=== PATIENT | female | born 1950 | race Caucasian/White ===

== ENCOUNTER → 2016-11-20 | Outpatient (CLI) | payer MEDICARE, OTHER ==
--- NOTE | 2016-11-20 17:43 | Diagnostic Imaging Report ---
Bilateral screening mammogram 2D views with tomosynthesis. The current study was also evaluated with a Computer Aided Detection (CAD) system. INDICATION: Screening. No current complaints stated on the questionnaire. COMPARISON: 08/18/15. FINDINGS: The breasts are composed of heterogeneously dense parenchyma which may decrease mammographic sensitivity. Circumscribed 5 mm cyst or intramammary lymph node is unchanged from prior exams in the axillary tail of the left breast. Allowing for technique and positional differences, no suspicious change is seen. IMPRESSION: No significant change. ACR BI-RADS Category 2: Benign findings. Result letter will be mailed to the patient. Note: At least 10% of breast cancer is not imaged by mammography. Dictated by: Dictated on workstation # [id number]
== END ==
LOC: RAD 09:05
PROVIDERS: ATTEND Family Medicine
DX: Z12.31 Encounter for screening mammogram for malignant neoplasm of breast (principal)
CPT/HCPCS: 77067

== ENCOUNTER → 2017-09-12 | Outpatient (CLI) | payer MEDICARE, OTHER ==
--- NOTE | 2017-09-12 16:07 | Diagnostic Imaging Report ---
INDICATION: Screening for osteoporosis. EXAMINATION: DEXA scan. FINDINGS: This study was compared to the prior exam of 08/18/2015. The bone mineral density of the hips and spine was measured. The T-score for the spine is 0.2, on the prior exam the T-score was 0.7. The T-score for the left hip is -0.7 and for the right hip -0.8. On the prior exam the T-score for each hip was -1.0. IMPRESSION: There are mixed results. There has been a slight decrease in the bone mineral density of the spine but a slight increase in the bone mineral density of both hips. All of the T-score values fall within the range of normal. Dictated by: Dictated on workstation # [id number]
== END ==
LOC: RAD 07:51
PROVIDERS: ATTEND Family Medicine
DX: Z13.820 Encounter for screening for osteoporosis (principal)
CPT/HCPCS: 77080

== ENCOUNTER → 2017-11-28 | Outpatient (CLI) | payer MEDICARE, OTHER ==
--- NOTE | 2017-11-28 14:39 | Diagnostic Imaging Report ---
INDICATION: Digital mammogram bilateral screening with 3-D tomosynthesis. This study was compared to the prior exams of 11/20/16, 08/18/15 and 09/06/14. At this time, there are no current complaints. The current study was also evaluated with a Computer Aided Detection (CAD) system. FINDINGS: The fibroglandular tissue in both breasts is heterogeneously dense. This does limit the sensitivity of this exam. Overall, there does not appear to have been any significant change when compared to the prior study. No primary or secondary sign of malignancy is noted. 3D tomographic images fail to show any sign of malignancy. IMPRESSION: There is no radiographic evidence for malignancy. ACR BI-RADS Category 1: Negative. Result letter will be mailed to the patient. Note: At least 10% of breast cancer is not imaged by mammography. Dictated by: Dictated on workstation # [id number]
== END ==
LOC: RAD 09:44
PROVIDERS: ATTEND Family Medicine
DX: Z12.31 Encounter for screening mammogram for malignant neoplasm of breast (principal)
CPT/HCPCS: 77067

== ENCOUNTER → 2018-12-15 | Outpatient (CLI) | payer MEDICARE, OTHER ==
--- NOTE | 2018-12-15 10:24 | Diagnostic Imaging Report ---
INDICATION: Routine screening. COMPARISON: 11/28/2017 and 11/20/2016. TECHNIQUE: 2D and 3D bilateral screening mammography was performed with CAD. FINDINGS: Scattered fibroglandular densities are identified bilaterally. The parenchymal pattern is stable. No dominant mass or malignant appearing microcalcifications are seen. The axillae are unremarkable. IMPRESSION: No mammographic features suspicious for malignancy are identified. ACR BI-RADS Category 1: Negative. Result letter will be mailed to the patient. Note: At least 10% of breast cancer is not imaged by mammography. Dictated by: Dictated on workstation # [id number]
== END ==
LOC: RAD 07:37
PROVIDERS: ATTEND Family Medicine
DX: Z12.31 Encounter for screening mammogram for malignant neoplasm of breast (principal)
CPT/HCPCS: 77067

== ENCOUNTER → 2019-03-13 | Outpatient (CLI) | payer MEDICARE, OTHER | LOC: LAB 09:10 | PROVIDERS: ATTEND Family Medicine | DX: R07.9 Chest pain, unspecified (principal) | CPT/HCPCS: 36415; 84484 ==

== ENCOUNTER → 2019-04-14 | Outpatient (CLI) | payer MEDICARE, OTHER ==
--- NOTE | 2019-04-14 10:44 | Diagnostic Imaging Report ---
PROCEDURE: CT head without contrast. TECHNIQUE: Multiple contiguous axial images were obtained through the brain without the use of intravenous contrast. Auto Exposure Controls were utilized during the CT exam to meet ALARA standards for radiation dose reduction. INDICATION: Headache and ear pain. FINDINGS: There is prominence of the ventricles and sulci. There is no hydrocephalus or cerebral edema. There is no midline shift or mass-effect. There is no intracranial mass, hemorrhage, or extra-axial fluid collection. There is some diffuse decreased attenuation of the periventricular white matter which is nonspecific. There is a mucous retention cyst and/or polyp in the sphenoid sinus. The remaining sinuses and mastoid air cells are clear. There are no regional areas of decreased attenuation appreciated to suggest an acute CVA. IMPRESSION: 1. No acute intracranial process. 2. Age-appropriate atrophy. 3. Decreased attenuation of the periventricular white matter which is nonspecific, however, likely reflects senescent change and/or chronic small vessel ischemic disease. 4. Mucous retention cyst and/or polyp in the sphenoid sinus. Dictated by: Dictated on workstation # [id number]
== END ==
LOC: RAD 10:29
PROVIDERS: ATTEND Family Medicine
DX: G31.9 Degenerative disease of nervous system, unspecified (principal); N28.9 Disorder of kidney and ureter, unspecified; H92.01 Otalgia, right ear; R90.82 White matter disease, unspecified
CPT/HCPCS: 70450

== ENCOUNTER → 2019-04-16 | Outpatient (CLI) | payer MEDICARE, OTHER ==
[2019-04-16 09:51] LABS: BASOPHILS % (AUTO) 1 % (0-10); EOSINOPHILS # (AUTO) 0.1 10^3/uL (0.0-0.3); EOSINOPHILS % (AUTO) 2 % (0-10); HEMATOCRIT 39 % (35-52); HEMOGLOBIN 12.6 G/DL (11.5-16.0); LYMPHOCYTES # (AUTO) 1.1 X 10^3 (1.0-4.0); LYMPHOCYTES % (AUTO) 20 % (12-44); MEAN CORPUSCULAR HEMOGLOBIN 29 PG (25-34); MEAN CORPUSCULAR HGB CONC 33 G/DL (32-36); MEAN CORPUSCULAR VOLUME 90 FL (80-99); MEAN PLATELET VOLUME 9.2 FL (7.4-10.4); MONOCYTES # (AUTO) 0.6 X 10^3 (0.0-1.0); MONOCYTES % (AUTO) 11 % (0-12); NEUTROPHILS # (AUTO) 3.7 X 10^3 (1.8-7.8); NEUTROPHILS % (AUTO) 67 % (42-75); PLATELET COUNT 327 10^3/uL (130-400); RED CELL DISTRIBUTION WIDTH 13.8 % (10.0-14.5); WHITE BLOOD COUNT 5.5 10^3/uL (4.3-11.0)
[2019-04-16 10:10] LABS: CREATININE SERUM 1.07 MG/DL (0.60-1.30)
== END ==
LOC: LAB 09:33
PROVIDERS: ATTEND Family Medicine
DX: R51 Headache (principal)
CPT/HCPCS: 36415; 82565; 84520; 85025

== ENCOUNTER → 2019-04-17 | Outpatient (CLI) | payer MEDICARE, OTHER ==
[~2019-04-17] MED LIST: HOLD METFORMIN - RECEIVED CONTRAST 20 ML VIAL IV SCH; IOHEXOL 350 MG/ML 100 ML (OMNIPAQUE 350) VIAL IV ONE; NS 100 ML (IVPB) BAG IV ONE
--- NOTE | 2019-04-17 09:53 | Diagnostic Imaging Report ---
PROCEDURE: CT angiography of the head with and without contrast. TECHNIQUE: Noncontrast CT of the head was obtained. Subsequently, after intravenous administration of contrast, thin section axial CT angiography of the head was performed. Source data was reformatted into multiple MIP reformats. Delayed postcontrast acquisition of the head was also acquired. Auto Exposure Controls were utilized during the CT exam to meet ALARA standards for radiation dose reduction. INDICATION: Headache. Right ear pain. COMPARISON: CT head on 04/14/2019. FINDINGS: CTA brain: Both internal carotid arteries are normal in course and caliber. The internal carotid artery terminus is unremarkable bilaterally. There is normal opacification of both the anterior and middle cerebral arteries bilaterally. There is no evidence of significant stenosis or aneurysm. The MCA trifurcation and the distal branch vessels are unremarkable bilaterally. There is no evidence of significant stenosis or aneurysm. In the posterior circulation, both of the vertebral arteries demonstrate normal opacification. The vertebral arteries are codominant. Both the right and left PICA arteries are identified. The basilar artery is normal in course and caliber. The terminal branch vessels including the superior cerebellar arteries unremarkable. The bilateral posterior cerebral arteries are unremarkable CT brain: No large acute territorial ischemia, mass, or hemorrhage. Chronic microvascular disease is seen in the periventricular and subcortical white matter. The ventricles and cortical sulci are prominent, consistent with generalized volume loss. The basilar cisterns are patent and unremarkable. The calvarium is intact. The paranasal sinuses and mastoid air cells are clear. IMPRESSION: 1. No evidence of intracranial aneurysm or significant stenosis. 2. No hemorrhage, mass, or evidence of territorial ischemia. 3. Generalized parenchymal volume loss with scattered chronic microvascular disease. Dictated by: Dictated on workstation # [id number]
== END ==
LOC: RAD 08:32
PROVIDERS: ATTEND Family Medicine
DX: G93.89 Other specified disorders of brain (principal); H92.01 Otalgia, right ear; R51 Headache
CPT/HCPCS: 70496

== ENCOUNTER → 2019-11-04 | Outpatient (CLI) | payer MEDICARE, OTHER ==
[2019-11-04 10:27] LABS: HEMOGLOBIN 13.1 G/DL (11.5-16.0); WHITE BLOOD COUNT 5.8 10^3/uL (4.3-11.0)
[2019-11-04 10:47] LABS: ALBUMIN 4.3 GM/DL (3.2-4.5); POTASSIUM 4.5 MMOL/L (3.6-5.0)
[2019-11-04 10:48] LABS: CALCIUM 10.2 MG/DL (8.5-10.1)
[2019-11-04 10:49] LABS: TOTAL PROTEIN 7.9 GM/DL (6.4-8.2)
[2019-11-04 10:51] LABS: BILIRUBIN,TOTAL 0.5 MG/DL (0.1-1.0)
[2019-11-04 10:53] LABS: CREATININE SERUM 1.08 MG/DL (0.60-1.30)
== END ==
LOC: LAB 09:55
PROVIDERS: ATTEND Family Medicine
DX: E03.9 Hypothyroidism, unspecified (principal); I10 Essential (primary) hypertension
CPT/HCPCS: 36415; 80053; 80061; 84443; 85027

== ENCOUNTER → 2019-12-22 | Outpatient (CLI) | payer MEDICARE, OTHER ==
--- NOTE | 2019-12-22 09:21 | Diagnostic Imaging Report ---
INDICATION: Postmenopausal. COMPARISON: 09/12/2017 FINDINGS: The bone mineral density of hips and spine was measured. The study was compared to the prior exam of 09/12/2017. The T score for the spine is -0.8. On the prior exam the T score was -0.2. The total T score for the left hip is -0.8 and for the right hip -0.9. On the prior exam the respected scores were -0.7 and -0.8. The T score for the left femoral neck is -1.0 and for the right -1.2. On the prior exam, the T-scores were -0.8 and -1.0 respectively. AP Spine L1-L4: [BMD (g/cm2): 1.104] [T-Score: -0.8] [Z-Score: 0.7] [BMD Previous: 1.227] [BMD % Change: -10.0] LT Hip Neck: [BMD (g/cm2): 0.899] [T-Score: -1.0] [Z-Score: 0.6] LT Hip Total: [BMD (g/cm2):0.901] [T-Score:-0.8] [Z-Score: 0.5] [BMD Previous: 0.915] [BMD % Change: -1.5] RT Hip Neck: [BMD (g/cm2):0.866] [T-Score:-1.4] [Z-Score:0.3] RT Hip Total: [BMD (g/cm2):0.889] [T-score:-0.9] [Z-Score:0.4] [BMD Previous:0.905] [BMD % Change:-1.8] *Indicates significant change from prior examination based on 95% confidence level. World Health Organization criteria for BMD interpretation classify patients as Normal (T-score at or above -1.0), Osteopenic (T-score between -1.0 and -2.5) or Osteoporotic (T-score at or below -2.5). LIMITATIONS AND MODIFICATION: None. FRACTURE RISK (FRAX SCORE): The ten year probability of (%): Major Osteoporotic Fracture: [na] Hip Fracture: [na] IMPRESSION: 1. There has been slight decrease in the bone mineral density of the spine and hips. However, the T scores of spine and the total T score for the hips remain within normal limits. 2. The T scores for the femoral necks are also decreased. The T score for the left femoral neck is at the lowest end of normal and while the T score for the right femoral neck indicates mild osteopenia. 3. See below National Osteoporosis Foundation guidelines on when to potentially initiate pharmacologic therapy. Based on the National Osteoporosis Foundation Guidelines, pharmacologic treatment should be initiated in any of the following, unless clinical conditions suggest otherwise: * Any patient with prior fragility fracture of the hip or vertebrae. A spine fracture indicates 5X risk for subsequent spine fracture and 2X risk for subsequent hip fracture. * Osteoporosis (T-score <-2.5). * Postmenopausal women and men age 50 and older with low bone mass/osteopenia (T-score between -1.0 and -2.5) by DXA and 10-year major osteoporotic fracture greater than 20% or a 10-year probability of hip fracture greater than 3%. These fracture risks are supplied above in the FRAX score, if applicable. * Clinician judgement and/or patient preferences may indicate treatment for people with 10-year fracture probabilities above or below these levels. Dictated by: Dictated on workstation # [id number]
--- NOTE | 2019-12-22 12:52 | Diagnostic Imaging Report ---
INDICATION: Routine screening. COMPARISON: 12/15/2018 and 11/28/2017. TECHNIQUE: 2D and 3D bilateral screening mammography was performed with CAD. FINDINGS: Both breasts are heterogeneously dense, limiting the sensitivity of mammography. There is an area of increased density and questionable architectural distortion in the right breast retroareolar region. No definite correlate is identified on the MLO view. Additional views are recommended. The left breast is unremarkable. No malignant appearing microcalcifications are seen. IMPRESSION: Right breast density and questionable architectural distortion, as described. Additional views are recommended for further evaluation. ACR BI-RADS Category 0: Incomplete. (Needs additional imaging evaluation). Result letter will be mailed to the patient. Note: At least 10% of breast cancer is not imaged by mammography. Dictated by: Dictated on workstation # [id number]
== END ==
LOC: RAD 08:00
PROVIDERS: ATTEND Family Medicine
DX: Z12.31 Encounter for screening mammogram for malignant neoplasm of breast (principal); M81.0 Age-related osteoporosis without current pathological fracture; Z78.0 Asymptomatic menopausal state
CPT/HCPCS: 77063; 77067; 77080

== ENCOUNTER → 2019-12-30 | Outpatient (CLI) | payer MEDICARE, OTHER ==
--- NOTE | 2019-12-30 08:57 | Diagnostic Imaging Report ---
INDICATION: Right breast density and architectural distortion. Patient presents for additional views. COMPARISON: Correlation is made with the prior mammogram from 12/22/2019. TECHNIQUE: Unilateral right 2D and 3D diagnostic mammography was performed with CAD. This included spot compression CC and ML views, rolled CC views, and 90 degree lateral views. FINDINGS: There is some persistent density in the retroareolar right breast approximately 3 cm from the nipple. This is indeterminate. No suspicious microcalcifications are seen. IMPRESSION: Persistent density in the retroareolar right breast. Further evaluation with ultrasound is recommended and will be performed today. ACR BI-RADS Category 0: Incomplete. (Needs additional imaging evaluation). Result letter will be mailed to the patient. Note: At least 10% of breast cancer is not imaged by mammography. Dictated by: Dictated on workstation # [id number]
--- NOTE | 2019-12-30 10:18 | Diagnostic Imaging Report ---
INDICATION: Right breast density and questionable architectural distortion. COMPARISON: Correlation is made with the screening mammogram from 12/22/2019 as well as a diagnostic mammogram performed earlier today. FINDINGS: Sonographic interrogation of the retroareolar right breast was performed. No sonographic abnormality is detected. No solid or cystic mass is detected. IMPRESSION: No suspicious sonographic abnormality is seen in the retroareolar right breast. Even so, a breast MRI would be recommended to evaluate the questionable area of architectural distortion in the retroareolar right breast. ACR BI-RADS Category 0: Incomplete. (Needs additional imaging evaluation). Dictated by: Dictated on workstation # [id number]
== END ==
LOC: RAD 08:00
PROVIDERS: ATTEND Family Medicine
DX: R92.2 Inconclusive mammogram (principal)
CPT/HCPCS: 76642; 77065; G0279

== ENCOUNTER → 2020-06-09 | Outpatient (CLI) | payer MEDICARE, OTHER ==
[2020-06-09 11:35] LABS: HEMOGLOBIN 12.3 g/dL (11.5-16.0); MEAN PLATELET VOLUME 8.9 fL (9.0-12.2); WHITE BLOOD COUNT 5.2 10^3/uL (4.3-11.0)
[2020-06-09 12:01] LABS: ALBUMIN 4.1 GM/DL (3.2-4.5); BILIRUBIN,TOTAL 0.3 MG/DL (0.1-1.0); CALCIUM 9.7 MG/DL (8.5-10.1); CREATININE SERUM 0.99 MG/DL (0.60-1.30); POTASSIUM 4.4 MMOL/L (3.6-5.0); TOTAL PROTEIN 7.7 GM/DL (6.4-8.2)
== END ==
LOC: LAB 10:58
PROVIDERS: ATTEND Family Medicine
DX: E78.00 Pure hypercholesterolemia, unspecified (principal); I10 Essential (primary) hypertension; E03.9 Hypothyroidism, unspecified
CPT/HCPCS: 36415; 80053; 80061; 84443; 85027

== ENCOUNTER → 2020-10-19 | Outpatient (CLI) | payer MEDICARE, OTHER ==
--- NOTE | 2020-10-19 14:18 | Diagnostic Imaging Report ---
INDICATION: Palpable lump in the left breast. COMPARISON: Correlation is made with prior mammograms of 12/22/2019 and 12/15/2018. TECHNIQUE: 2D and 3D bilateral diagnostic mammography was performed with CAD. FINDINGS: Both breasts remain heterogeneously dense, limiting the sensitivity of mammography. No mass or malignant appearing microcalcifications are seen. The patient denies a palpable abnormality today. The axillae are unremarkable. IMPRESSION: No mammographic features suspicious for malignancy are identified. Even so, directed sonographic interrogation of the area of palpable abnormality which reportedly is at the 5 o'clock location is recommended and will be performed today. ACR BI-RADS Category 0: Incomplete. (Needs additional imaging evaluation). Result letter will be mailed to the patient. Note: At least 10% of breast cancer is not imaged by mammography. Dictated by: Dictated on workstation # [id number]
--- NOTE | 2020-10-19 14:52 | Diagnostic Imaging Report ---
Indication: Palpable lump left breast. Correlation is made with diagnostic mammogram earlier same day. Sonographic interrogation of the 4-6 o'clock location of the left breast was performed. No sonographic abnormalities is detected. No solid or cystic masses detected. IMPRESSION: BI-RADS Category 1 No sonographic abnormality is detected. Continued close clinical and self breast exams recommended to confirm stability of the palpable abnormality. ACR BI-RADS Category 1: Negative. Result letter will be mailed to the patient. Note: At least 10% of breast cancer is not imaged by mammography. Dictated by: Dictated on workstation # [id number]
== END ==
LOC: RAD 13:20
PROVIDERS: ATTEND Nurse Practitioner Women's Health
DX: Z12.31 Encounter for screening mammogram for malignant neoplasm of breast (principal); N63.23 Unspecified lump in the left breast, lower outer quadrant
CPT/HCPCS: 76642; 77066; G0279; 77062

== ENCOUNTER → 2020-12-30 | Outpatient (CLI) | payer MEDICARE, OTHER ==
--- NOTE | 2020-12-30 10:33 | Diagnostic Imaging Report ---
INDICATION: Headache, nausea and vomiting. TECHNIQUE: Multiple contiguous axial images were obtained through the brain without the use of intravenous contrast. Auto Exposure Controls were utilized during the CT exam to meet ALARA standards for radiation dose reduction. Comparison is made to prior CT head of 04/17/2019. There are no extra-axial fluid collections. No intracranial hemorrhage. No intracranial mass or mass effect. No midline shift. The ventricles are normal in size and position. There are no focal parenchymal abnormalities in the brain. Calvarial windows show no fracture. There is opacification of the left sphenoid sinus which was partially present on prior study but is worse on today's study. There is prominent soft tissue thickening with some calcification in the anterior portion of the left sphenoid sinus. There is a small retention cyst or polyp in the right maxillary sinus. IMPRESSION: No acute intracranial abnormality. Worsening opacification of the left sphenoid sinus with soft tissue thickening and calcification anteriorly. Small retention cyst or polyp in the right maxillary sinus. Report given to Dr. Zhou at 10:31 AM 12/30/2020/pablo Report faxed at 10:32 AM 12/30/2020/cb Dictated by: Dictated on workstation # [id number]
== END ==
LOC: RAD 10:00
PROVIDERS: ATTEND Family Medicine
DX: J34.89 Other specified disorders of nose and nasal sinuses (principal); R11.2 Nausea with vomiting, unspecified
CPT/HCPCS: 70450

== ENCOUNTER → 2021-01-03 | Outpatient (CLI) | payer MEDICARE, OTHER ==
[~2021-01-03] MED LIST changes: +GADOBUTROL 7.5 MMOL/7.5 ML (GADAVIST) VIAL IV ONE; -HOLD METFORMIN - RECEIVED CONTRAST 20 ML VIAL IV SCH; -IOHEXOL 350 MG/ML 100 ML (OMNIPAQUE 350) VIAL IV ONE; -NS 100 ML (IVPB) BAG IV ONE
--- NOTE | 2021-01-03 09:36 | Diagnostic Imaging Report ---
Clinical indication: Patient with headache. Exam: MRI of the brain performed without and with 7 cc of Gadavist IV contrast. Sequences include axial DWI, ADC map, axial gradient echo, axial T2, axial FLAIR, axial T1, axial T1 post IV contrast, coronal T1 fat-sat post IV contrast, and sagittal T1 post IV contrast. Comparison: Head CT without contrast dated 12/30/2020. Findings: There is no evidence of acute cerebral infarct, intracranial hemorrhage, or gross mass effect. There is no abnormal IV contrast enhancement. The brain parenchymal volume appears appropriate for patient's age. There are multiple focal and patchy areas of high T2 signal white matter changes involving both cerebral hemispheres, likely representing chronic small vessel ischemic disease. There is normal patel-white matter distinction. There is no significant midline shift or herniation. The in[place] of [place] vascular structures show no gross abnormality as visualized. The pituitary gland, sella, and suprasellar regions are unremarkable as visualized. There is no evidence of hydrocephalus. The basal cisterns are unremarkable. The skull, extracranial soft tissue, and orbits are unremarkable. There is large amounts mucosal thickening of fluid involving the sphenoid sinus and moderate amount involving the ethmoid sinus. There is a small mucus retention cyst involving the right maxillary sinus and mild mucosal thickening involving the left maxillary sinus. Temporal bones show no significant abnormality. IMPRESSION: There is diffuse paranasal sinusitis. Otherwise, unremarkable MRI of the brain for age. Dictated by: Dictated on workstation # [id number]
== END ==
LOC: RAD 08:09
PROVIDERS: ATTEND Family Medicine
DX: J32.9 Chronic sinusitis, unspecified (principal)
CPT/HCPCS: 70553

== ENCOUNTER 2021-02-04 15:45 | Emergency (ER) | payer MEDICARE, OTHER ==
[~2021-02-04] VITALS: Ht 162.5 cm; Wt 64.8 kg
--- NOTE | 2021-02-04 15:55 | ED General ---
General Stated Complaint: CP Source of Information: Patient Exam Limitations: No Limitations (TIFFANY NEVAREZ APRN) History of Present Illness Date Seen by Provider: Feb 04, 2021 Time Seen by Provider: 15:53 Initial Comments To ER with reports of central chest pain. This began at about 3 PM today while she was outside working on her horse trailer. This chest pain was very sharp very sudden in onset and radiated straight through to her back. She had diaphoresis with this. She does have a history of hypertension and hyperlipidemia. Non-smoker and no history of diabetes. No history of coronary disease or any chest pain.EMS arrived and gave 3 and 24 mg of aspirin and 3 nitroglycerin with resultant resolution of pain. Timing/Duration: 1 Hour Severity: Moderate Associated Systoms: Denies Symptoms (TIFFANY NEVAREZ APRN) Allergies and Home Medications Allergies Coded Allergies: No Known Drug Allergies (Unverified , 12/30/08) Patient Home Medication List Home Medication List Reviewed: Yes (TIFFANY NEVAREZ APRN) Review of Systems Review of Systems Constitutional: see HPI EENTM: see HPI Respiratory: no symptoms reported Cardiovascular: see HPI, chest pain Genitourinary: no symptoms reported Musculoskeletal: no symptoms reported Skin: no symptoms reported Psychiatric/Neurological: No Symptoms Reported Hematologic/Lymphatic: No Symptoms Reported Immunological/Allergic: no symptoms reported (TIFFANY NEVAREZ APRN) Past Ayqtgco-Tjvafj-Ppldgs Hx Past Medical History Reproductive Disorders: No (TIFFANY NEVAREZ APRN) Physical Exam Vital Signs Vital Signs - First Documented 02/04/21 15:50 Temp 36.0 Pulse 77 Resp 18 B/P (MAP) 129/84 (99) Pulse Ox 97 O2 Delivery Room Air (AMBIKA LOPES MD) Vital Signs Capillary Refill : (TIFFANY NEVAREZ APRN) Height, Weight, BMI Height: '" Weight: lbs. oz. kg; BMI Method: General Appearance: No Apparent Distress, WD/WN Eyes: Bilateral Eye Normal Inspection, Bilateral Eye PERRL, Bilateral Eye EOMI HEENT: PERRL/EOMI, TMs Normal Neck: Full Range of Motion, Normal Inspection Respiratory: No Accessory Muscle Use, No Respiratory Distress Cardiovascular: Regular Rate, Rhythm Gastrointestinal: Normal Bowel Sounds, Non Tender, Soft Extremity: Normal Capillary Refill, Normal Inspection Neurologic/Psychiatric: Alert, Oriented x3 Skin: Normal Color, Warm/Dry (TIFFANY NEVAREZ APRN) Progress/Results/Core Measures Suspected Sepsis SIRS Temperature: Pulse: Respiratory Rate: Laboratory Tests 02/04/21 15:50: White Blood Count 7.0 Blood Pressure / Mean: Laboratory Tests 02/04/21 15:50: Creatinine 1.02, INR Comment 1.0, Platelet Count 324, Total Bilirubin 0.4 (TIFFANY NEVAREZ APRN) Results/Orders Lab Results Laboratory Tests Test 02/04/21 15:50 02/04/21 17:44 Range/Units White Blood Count 7.0 4.3-11.0 10^3/uL Red Blood Count 4.17 3.80-5.11 10^6/uL Hemoglobin 12.4 11.5-16.0 g/dL Hematocrit 38 35-52 % Mean Corpuscular Volume 91 80-99 fL Mean Corpuscular Hemoglobin 30 25-34 pg Mean Corpuscular Hemoglobin Concent 33 32-36 g/dL Red Cell Distribution Width 14.1 10.0-14.5 % Platelet Count 324 130-400 10^3/uL Mean Platelet Volume 8.7 L 9.0-12.2 fL Immature Granulocyte % (Auto) 1 % Neutrophils (%) (Auto) 59 42-75 % Lymphocytes (%) (Auto) 26 12-44 % Monocytes (%) (Auto) 13 H 0-12 % Eosinophils (%) (Auto) 1 0-10 % Basophils (%) (Auto) 1 0-10 % Neutrophils # (Auto) 4.1 1.8-7.8 10^3/uL Lymphocytes # (Auto) 1.8 1.0-4.0 10^3/uL Monocytes # (Auto) 0.9 0.0-1.0 10^3/uL Eosinophils # (Auto) 0.1 0.0-0.3 10^3/uL Basophils # (Auto) 0.0 0.0-0.1 10^3/uL Immature Granulocyte # (Auto) 0.0 0.0-0.1 10^3/uL Prothrombin Time 13.1 12.2-14.7 SEC INR Comment 1.0 0.8-1.4 Activated Partial Thromboplast Time 28 24-35 SEC Sodium Level 136 135-145 MMOL/L Potassium Level 3.6 3.6-5.0 MMOL/L Chloride Level 100 98-107 MMOL/L Carbon Dioxide Level 23 21-32 MMOL/L Anion Gap 13 5-14 MMOL/L Blood Urea Nitrogen 18 7-18 MG/DL Creatinine 1.02 0.60-1.30 MG/DL Estimat Glomerular Filtration Rate 54 BUN/Creatinine Ratio 18 Glucose Level 100 70-105 MG/DL Calcium Level 9.8 8.5-10.1 MG/DL Corrected Calcium 9.9 8.5-10.1 MG/DL Magnesium Level 1.9 1.6-2.4 MG/DL Total Bilirubin 0.4 0.1-1.0 MG/DL Aspartate Amino Transf (AST/SGOT) 21 5-34 U/L Alanine Aminotransferase (ALT/SGPT) 25 0-55 U/L Alkaline Phosphatase 51 40-136 U/L Myoglobin 27.4 10.0-92.0 NG/ML Troponin I < 0.028 < 0.028 <0.028 NG/ML Total Protein 7.0 6.4-8.2 GM/DL Albumin 3.9 3.2-4.5 GM/DL (AMBIKA LOPES MD) Medications Given in ED Current Medications Medications Dose Ordered Sig/Corazon Route Start Time Stop Time Status Last Admin Dose Admin Fentanyl Citrate 25 mcg ONCE ONCE IVP 02/04/21 16:15 02/04/21 16:16 DC 02/04/21 16:16 25 MCG Iohexol 100 ml ONCE ONCE IV 02/04/21 17:00 02/04/21 17:01 DC 02/04/21 17:06 60 ML Sodium Chloride 100 ml ONCE ONCE IV 02/04/21 17:00 02/04/21 17:01 DC 02/04/21 17:06 80 ML (AMBIKA LOPES MD) Vital Signs/I&O 02/04/21 15:50 Temp 36.0 Pulse 77 Resp 18 B/P (MAP) 129/84 (99) Pulse Ox 97 O2 Delivery Room Air (AMBIKA LOPES MD) Vital Signs/I&O Capillary Refill : (TIFFANY NEVAREZ APRN) Diagnostic Imaging Diagonstic Imaging: Xray Plain Films/CT/US/NM/MRI: chest Comments NAME: IOANA PEREZ [facility] REC#: [id number] PT STATUS: REG ER : 1950 PHYSICIAN: TIFFANY NEVAREZ APRN ADMIT DATE: 02/04/21/ER Draft Date of Exam:02/04/21 CHEST 1 VIEW, AP/PA ONLY Indication: Chest pain. Comparison: None. Discussion: Single portable upright view of the chest was obtained. Normal heart size. No consolidation, pleural fluid or pneumothorax. No acute osseous abnormality. Old right rib fracture noted. Impression: Negative chest. Dictated on workstation # [id number] Dict: 02/04/21 1613 Trans: 02/04/21 1615 [facility] [id number] Interpreted by: ISMA HUIZAR MD Electronically signed by: (TIFFANY NEVAREZ APRN) Departure Communication (Admissions) 1802-repeat troponin is negative she is completely pain-free alert and oriented. We will discharged home. Family Conversation NAME: IO[facility] REC#: [id number] PT STATUS: REG ER : 1950 PHYSICIAN: TIFFANY NEVAREZ APRN ADMIT DATE: 02/04/21/ER Draft Date of Exam:02/04/21 CT ANGIO CHEST W PROCEDURE: CT angiography of the chest with contrast. TECHNIQUE: Multiple contiguous axial images were obtained through the chest after uneventful bolus administration of intravenous contrast. 3D reconstructed CTA MIP acquisitions were also performed. Auto Exposure Controls were utilized during the CT exam to meet ALARA standards for radiation dose reduction. INDICATION: 70-year-old female, chest pain. CORRELATION: None. FINDINGS: Heart size is within normal limits. No significant pericardial effusion. Scattered coronary artery calcification. The thoracic aorta is of normal caliber. No filling defect to suggest a dissection. Visualized segments of the upper abdominal aorta demonstrates mild calcification. 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 Superior mesenteric artery is patent. There is no suggested pathologically enlarged mediastinal lymph node. Overall assessment of the pulmonary arteries is essentially nondiagnostic owing to phase of contrast bolus timing and imaging. The lung haley are clear of infiltrate. No significant pleural effusion. The visualized portions of the upper abdomen are unremarkable. Mildly accentuated thoracic kyphosis and degenerative changes of thoracic spine. IMPRESSION: 1. Thoracic aorta unremarkable. No aneurysm or dissection. 2. 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 3. Pulmonary artery cannot be adequately assessed for potential embolism. Dictated on workstation # [id number] EKG shows sinus rhythm at 68 no ectopy normal intervals no ST segment change (TIFFANY NEVAREZ APRN) Impression Primary Impression: Chest pain Disposition: HOME, SELF-CARE Condition: Stable Departure-Patient Inst. Decision time for Depature: 18:27 (TIFFANY NEVAREZ APRN) Referrals: CHRISTINA TOMLINSON DO (PCP/Family) Primary Care Physician Patient Instructions: Chest Pain Add. Discharge Instructions: . Call Dr. Tomlinson on Saturday to make an appointment to be seen for follow-up. Return to ER for any worsening symptoms in the meantime. ATTENDING PHYSICIAN NOTE: I was physically present as attending physician in the emergency department during the care of this patient, but I was not directly involved in the decision making or delivery of care for this patient. (AMBIKA LOPES MD) Copy Copies To 1: CHRISTINA TOMLINSON PETER J APRN Feb 04, 2021 15:55 AMBIKA LOPES MD Feb 04, 2021 18:35
[2021-02-04 16:10] LABS: BASOPHILS % (AUTO) 1 % (0-10); EOSINOPHILS # (AUTO) 0.1 10^3/uL (0.0-0.3); EOSINOPHILS % (AUTO) 1 % (0-10); HEMATOCRIT 38 % (35-52); HEMOGLOBIN 12.4 g/dL (11.5-16.0); LYMPHOCYTES # (AUTO) 1.8 10^3/uL (1.0-4.0); LYMPHOCYTES % (AUTO) 26 % (12-44); MEAN CORPUSCULAR HEMOGLOBIN 30 pg (25-34); MEAN CORPUSCULAR HGB CONC 33 g/dL (32-36); MEAN CORPUSCULAR VOLUME 91 fL (80-99); MEAN PLATELET VOLUME 8.7 fL (9.0-12.2); MONOCYTES # (AUTO) 0.9 10^3/uL (0.0-1.0); MONOCYTES % (AUTO) 13 % (0-12); NEUTROPHILS # (AUTO) 4.1 10^3/uL (1.8-7.8); NEUTROPHILS % (AUTO) 59 % (42-75); PLATELET COUNT 324 10^3/uL (130-400)
[2021-02-04 16:13] LABS: ALBUMIN 3.9 GM/DL (3.2-4.5)
[2021-02-04 16:14] LABS: POTASSIUM 3.6 MMOL/L (3.6-5.0); PROTHROMBIN TIME PATIENT 13.1 SEC (12.2-14.7)
[2021-02-04 16:15] LABS: CALCIUM 9.8 MG/DL (8.5-10.1)
[2021-02-04] MEDS ORDERED: fentaNYL INJ 100 MCG/2 ML AMP IVP ONE (16:15)
--- NOTE | 2021-02-04 16:15 | Diagnostic Imaging Report ---
Indication: Chest pain. Comparison: None. Discussion: Single portable upright view of the chest was obtained. Normal heart size. No consolidation, pleural fluid or pneumothorax. No acute osseous abnormality. Old right rib fracture noted. Impression: Negative chest. Dictated by: Dictated on workstation # [id number]
[2021-02-04 16:18] LABS: BILIRUBIN,TOTAL 0.4 MG/DL (0.1-1.0)
[2021-02-04 16:20] LABS: CREATININE SERUM 1.02 MG/DL (0.60-1.30)
[2021-02-04 16:22] LABS: MAGNESIUM 1.9 MG/DL (1.6-2.4)
[2021-02-04] MEDS ORDERED: NS 100 ML (IVPB) BAG IV ONE (17:00)
[2021-02-04] MEDS ORDERED: HOLD METFORMIN - RECEIVED CONTRAST 20 ML VIAL IV SCH (17:00)
[2021-02-04] MEDS ORDERED: IOHEXOL 350 MG/ML 100 ML (OMNIPAQUE 350) VIAL IV ONE (17:00)
--- NOTE | 2021-02-04 17:41 | Diagnostic Imaging Report ---
PROCEDURE: CT angiography of the chest with contrast. TECHNIQUE: Multiple contiguous axial images were obtained through the chest after uneventful bolus administration of intravenous contrast. 3D reconstructed CTA MIP acquisitions were also performed. Auto Exposure Controls were utilized during the CT exam to meet ALARA standards for radiation dose reduction. INDICATION: 70-year-old female, chest pain. CORRELATION: None. FINDINGS: Heart size is within normal limits. No significant pericardial effusion. Scattered coronary artery calcification. The thoracic aorta is of normal caliber. No filling defect to suggest a dissection. Visualized segments of the upper abdominal aorta demonstrates mild calcification. 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 Superior mesenteric artery is patent. There is no suggested pathologically enlarged mediastinal lymph node. Overall assessment of the pulmonary arteries is essentially nondiagnostic owing to phase of contrast bolus timing and imaging. The lung haley are clear of infiltrate. No significant pleural effusion. The visualized portions of the upper abdomen are unremarkable. Mildly accentuated thoracic kyphosis and degenerative changes of thoracic spine. IMPRESSION: 1. Thoracic aorta unremarkable. No aneurysm or dissection. 2. 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 3. Pulmonary artery cannot be adequately assessed for potential embolism. Dictated by: Dictated on workstation # [id number]
[2021-02-04 18:35] VITALS: BP 140/71
== END 2021-02-04 18:35 | disposition home or self-care (01) ==
LOC: EDUNIT# 15:45 → ER 15:46
DX: R07.9 Chest pain, unspecified (principal); I10 Essential (primary) hypertension
CPT/HCPCS: 36415; 71045; 71275; 80053; 83735; 83874; 84484; 85025; 85610; 85730; 93005; 93041

== ENCOUNTER → 2021-03-08 | Outpatient (CLI) | payer MEDICARE, OTHER ==
[~2021-03-08] MED LIST changes: +CATHETER FLUSH 10 ML SYR IV PRN; -GADOBUTROL 7.5 MMOL/7.5 ML (GADAVIST) VIAL IV ONE; +REGADENOSON 0.4 MG/5 ML SYR (LEXISCAN) IV ONE
[2021-03-08 11:44] LABS: BILIRUBIN,TOTAL 0.4 MG/DL (0.1-1.0); CALCIUM 9.8 MG/DL (8.5-10.1); CREATININE SERUM 1.05 MG/DL (0.60-1.30); POTASSIUM 4.5 MMOL/L (3.6-5.0); TOTAL PROTEIN 7.6 GM/DL (6.4-8.2)
[2021-03-08 13:18] VITALS: BP 152/89
--- NOTE | 2021-03-08 15:28 | Cardiology Stress Test Report ---
Stress Test Report Date of Procedure/Referring: Date of Procedure: Mar 08, 2021 PCP Joan Mosqueda MD Admitting Physician Ángel Zhou DO Indications: HTN Baseline Heart Rate: 72 Baseline Blood Pressure: Blood Pressure Systolic: 152 Blood Pressure Diastolic: 89 Baseline Vitals Vital Signs Date Time Temp Pulse Resp B/P (MAP) Pulse Ox O2 Delivery O2 Flow Rate FiO2 03/08/21 13:18 72 152/89 (110) 98 Baseline EKG: Baseline EKG: NSR Summary After explaining the procedure to the patient, she signed a consent and then brought to the stress nuclear laboratory. Patient received 0.4 mg Lexiscan for stress test, ECG, heart rate and blood pressure were monitored continuously. Resting and stress dose of radio tracer were injected, imaging was acquired and reviewed in short axis, horizontal long axis and vertical long axis views. TID: 0.97 SSS: 3 SDS: 1 EF: 86 1. Patient tolerated Lexiscan well 2. Mild decrease uptake at the apex and anterior apical segment, there is no significant ischemia or infarction on SPECT images 3. Normal left ventricular size, EF 86% JOAN MOSQUDEA MD Mar 08, 2021 15:28
== END ==
LOC: CARD 12:15
PROVIDERS: ATTEND Internal Medicine Cardiovascular Disease
DX: I10 Essential (primary) hypertension (principal); I25.10 Atherosclerotic heart disease of native coronary artery without angina pectoris; E78.2 Mixed hyperlipidemia
CPT/HCPCS: 78452; 80053; 80061; 93017; A9502; 36415

== ENCOUNTER → 2021-04-11 | Outpatient (CLI) | payer MEDICARE, OTHER | LOC: CARD 08:00 | PROVIDERS: ATTEND Internal Medicine Cardiovascular Disease | DX: I49.9 Cardiac arrhythmia, unspecified (principal) | CPT/HCPCS: 93225; 93226 ==

== ENCOUNTER 2021-04-19 10:00 | Day surgery (SDC) | payer MEDICARE, OTHER ==
[2021-04-19] VITALS (13 sets, daily range): BP systolic 115–129; BP diastolic 63–77
[~2021-04-19] VITALS: Ht 162.6 cm; Wt 68.0 kg
[2021-04-19 08:13] LABS: HEMATOCRIT 39 % (35-52); HEMOGLOBIN 12.4 g/dL (11.5-16.0); MEAN CORPUSCULAR HEMOGLOBIN 29 pg (25-34); MEAN CORPUSCULAR HGB CONC 32 g/dL (32-36); MEAN CORPUSCULAR VOLUME 92 fL (80-99); MEAN PLATELET VOLUME 8.8 fL (9.0-12.2); PLATELET COUNT 384 10^3/uL (130-400); WHITE BLOOD COUNT 7.4 10^3/uL (4.3-11.0)
--- NOTE | 2021-04-19 08:27 | Diagnostic Imaging Report ---
INDICATION: Pre-heart catheterization. TIME OF EXAM: 8:08 AM Correlation is made with prior chest 02/04/2021. FINDINGS: The heart size is normal. The pulmonary vascularity is unremarkable. The lungs are clear. No infiltrate, effusion or pneumothorax is detected. IMPRESSION: No acute cardiopulmonary process is detected. Dictated by: Dictated on workstation # [id number]
[2021-04-19 08:31] LABS: ALBUMIN 4.1 GM/DL (3.2-4.5); BILIRUBIN,TOTAL 0.5 MG/DL (0.1-1.0); CALCIUM 9.9 MG/DL (8.5-10.1); CREATININE SERUM 1.12 MG/DL (0.60-1.30); POTASSIUM 3.7 MMOL/L (3.6-5.0); TOTAL PROTEIN 7.6 GM/DL (6.4-8.2)
[~2021-04-19 10:00] MED LIST changes: +AMLO-250 PO; +ASPI-1238 PO; +ATOR20TA66 PO; +CALC-140 PO; -CATHETER FLUSH 10 ML SYR IV PRN; +CHOL500044 PO; +ESTR0.62 PO; +FLUT9.9S NS; +HEParin (CATH LAB) 2,000 ML IV ONE; +IBUP-2473 PO; +LEVO75TA6 PO; +LIDOCAINE 1% INJ 20 ML 20 ML VIAL ONE; +LORA1TAB59 PO; +MELO15TA39 PO; +METR45GE9 TP; +MONT-40 PO; +MULT-1136 PO; +NS IV 1000 ML 1,000 ML IV SCH; +NS IV 1000 ML 1,000 ML ONE; +PANT40TA52 PO; -REGADENOSON 0.4 MG/5 ML SYR (LEXISCAN) IV ONE; +VITA100T8 PO; +VITA1CAP16 PO; +[UNRECOGNIZED DRUG - CODE] PO
--- NOTE | 2021-04-19 10:02 | Conscious Sedation/ASA ---
Conscious Sedation Pre-Proced Time 10:02 ASA Score 3 For ASA 3 and 4: Consider anesthesia and medical clearance. Also, for patients with a history of failed moderate sedation consider anesthesia. Airway Lungs Heart ASA score ASA 1: a normal healthy patient ASA 2: a patient with a mild systemic disease (mid diabetes, controlled hypertension, obesity x ASA 3: a patient with a severe systemic disease that limits activity (angina, COPD, prior Myocardial infarction) ASA 4: a patient with an incapacitating disease that is a constant threat to life (CHF, renal failure) ASA 5: a moribund patient not expected to survive 24 hrs. (ruptured aneurysm) ASA 6: a declared brain- patient whose organs are being harvested. For emergent operations, add the letter E after the classification Mallampati Classification Grade 3 Sedation Plan Analgesia, Amnesia, Plan communicated to team members, Discussed options with patient/fam, Discussed risks with patient/fam The patient is an appropriate candidate to undergo the planned procedure, sedation, and anesthesia. The patient immediately re-assessed prior to indication. JOAN MEDINA MD Apr 19, 2021 10:02
[2021-04-19] MEDS ORDERED: fentaNYL INJ 100 MCG/2 ML AMP ONE (10:09)
[2021-04-19] MEDS ORDERED: MIDAZOLAM 5 MG/5 ML (VERSED) VIAL ONE (10:10)
--- NOTE | 2021-04-19 10:41 | Discharge Inst-Post CATH ---
Discharge Inst-CATH/EP Problems Reviewed?: Yes Post Cardiac Cath/EP D/C Inst Follow Up/Plan Appointment with Dr. Mosqueda's office in 4 to 6 weeks <b>CARDIAC CATH/EP PROCEDURE DISCHARGE INSTRUCTIONS</b> ACTIVITY * Go Home directly and rest. * Limit activity of the leg (or wrist if it was used) for 7 days including aer obics, swimming, jogging, bicycling, etc. * Restrict stair-climbing for 7 days if possible, if not, climb up with your non-cath leg, then bring together on the same step. * Avoid lifting, pushing, pulling or excessive movement of the affected extremi ty for 7 days. * Customary sexual activity may be resumed after 2 days-use caution not to use a position that strains or causes pain to the affected extremity. * No driving for 24 hours. * NO SMOKING. * Avoid straining for bowel movements for 7 days. * Gentle walking on level ground is allowed. * Returning to work will depend on the type of procedure and the results. Your doctor will discuss this with you. CALL YOUR DOCTOR FOR ANY OF THE FOLLOWING: *If bleeding from the puncture site occurs- Apply gentle pressure to site with clean cloth and call your doctor or EMS. * If a knot or lump forms under the skin, increases in size, or causes pain. * If bruising appears to be worsening or moving further down your leg instead of disappearing. * Temperature above 101 F. CARE OF YOUR GROIN INCISION; * Bruising or purple discoloration of the skin near the puncture site is common. * You may shower only, no bathtub bathing for 5 days. Be careful to avoid slipping as your leg may feel stiff. * If a closure device was used on your femoral artery, please see the attached guide regarding care of the device and your leg. * Leave dressing on FOR 24 hours. CARE OF YOUR WRIST INCISION; * Bruising or purple discoloration of the skin near the puncture site is common. * You may shower. * DO NOT submerge wrist. * Leave dressing on FOR 24 hours. JOAN MOSQUEDA MD Apr 19, 2021 10:41
--- NOTE | 2021-04-19 10:44 | Cardiac Cath Report ---
Cardiac Cath Report Physician (s)/Product Mgmt Dev Manager (s) Physician JOAN MEDINA MD Pre-Procedure Diagnosis Pre-Procedure Diagnosis: Chest pain Post-Procedure Note Procedure Start Date: Apr 19, 2021 Name of Procedure: Left heart catheterization Left ventriculogram Aortic arch Findings/Procedure Note PROCEDURE NOTE: 70-year-old lady with history of recurrent chest pain, had a borderline stress test, had multiple emergency room visit for recurrent chest pain, discussed the management plan recommended cardiac catheterization possible PTCA. After explaining the procedure to the patient, all pros and cons were explained, all questions were answered. The patient signed the consent and then she was placed on the cardiac catheterization laboratory. Groin was prepped SL fashion local anesthesia was used. Sheath placed in the right femoral artery. Suresh right and left catheter were used to access the coronary system. Pigtail was used to access the left ventricular cavity. Left ventriculogram was done Aortic arch angiogram was done due to the calcification in the aortic arch that was noted on fluoroscopy and the significant chest pain that she has been having. At the end of the procedure the sheath was removed. Closure device was deployed FINDINGS: Hemodynamics LV 130/13, end-diastolic pressure of 13 Aorta 129/59 mean of 88 ANATOMY: Left Main is free of obstructive disease Left Anterior Descending has mild disease nonobstructive disease Left Circumflex is free of obstructive disease Right Coronary Artery is free of obstructive disease LV Gram was done showing normal left ventricular size and contractility, estimated ejection fraction 60% Aorta evaluation done with aortic arch angiogram showing normal aortic arch, no dissection or aneurysm, normal origin of the brachiocephalic artery, left carotid and left subclavian arteries CONCLUSION: 1. Mild coronary artery disease nonobstructive disease 2. Normal left ventricular size and systolic function estimate ejection fract ion 60% 3. Normal aortic arch and great vessels of the neck DISCUSSION AND RECOMMENDATION: Medical therapy is recommended no intervention is warranted Anesthesia Type: Conscious Sedation Estimated blood loss (mL): 20 ml Contrast Amount: 40 ml Total Radiation Dose: 155 mGy Post-Procedure Diagnosis Post-operative diagnosis: Chest pain Hypertension Hyperlipidemia Coronary artery disease JOAN MEDINA MD Apr 19, 2021 10:44
[2021-04-19] MEDS ORDERED: NS IV 1000 ML 1,000 ML IV SCH (10:45)
[2021-04-19] MEDS ORDERED: PATIENT MAY USE OWN MEDS, ALL PO SCH (10:45)
== END 2021-04-19 15:29 | disposition home or self-care (01) ==
LOC: CATH 10:00 → SDC 10:56 → CATH 15:29
PROVIDERS: ATTEND Internal Medicine Cardiovascular Disease
DX: I25.10 Atherosclerotic heart disease of native coronary artery without angina pectoris (principal); I10 Essential (primary) hypertension; E78.2 Mixed hyperlipidemia; R00.2 Palpitations; I73.9 Peripheral vascular disease, unspecified; K21.9 Gastro-esophageal reflux disease without esophagitis; I65.23 Occlusion and stenosis of bilateral carotid arteries; Z88.2 Allergy status to sulfonamides; Z88.5 Allergy status to narcotic agent; Z79.899 Other long term (current) drug therapy; Z11.2 Encounter for screening for other bacterial diseases
CPT/HCPCS: 71045; 80053; 80061; 85027; 85610; 85730; 87081; 93458; C1760; C1894; 36415

== ENCOUNTER → 2021-12-11 | Outpatient (CLI) | payer MEDICARE, OTHER ==
[~2021-12-11] MED LIST changes: -HEParin (CATH LAB) 2,000 ML IV ONE; -LIDOCAINE 1% INJ 20 ML 20 ML VIAL ONE; -NS IV 1000 ML 1,000 ML IV SCH; -NS IV 1000 ML 1,000 ML ONE
[2021-12-11 10:50] LABS: HEMATOCRIT 38 % (35-52); HEMOGLOBIN 12.4 g/dL (11.5-16.0); MEAN CORPUSCULAR HEMOGLOBIN 30 pg (25-34); MEAN CORPUSCULAR HGB CONC 33 g/dL (32-36); MEAN CORPUSCULAR VOLUME 91 fL (80-99); MEAN PLATELET VOLUME 8.8 fL (9.0-12.2); PLATELET COUNT 276 10^3/uL (130-400)
[2021-12-11 11:07] LABS: ALBUMIN 4.1 GM/DL (3.2-4.5); BILIRUBIN,TOTAL 0.4 MG/DL (0.1-1.0); CALCIUM 10.7 MG/DL (8.5-10.1); CREATININE SERUM 1.05 MG/DL (0.60-1.30); POTASSIUM 3.8 MMOL/L (3.6-5.0); TOTAL PROTEIN 7.4 GM/DL (6.4-8.2)
--- NOTE | 2021-12-11 12:01 | Diagnostic Imaging Report ---
INDICATION: Right hip pain. TIME OF EXAM: 11:00 a.m. 2 views right hip demonstrate normal femoral acetabular alignment. Joint space well maintained. Femoral head and neck are intact. No fractures are seen. IMPRESSION: No acute bony abnormality is detected. Dictated by: Dictated on workstation # [id number]
== END ==
LOC: RAD 10:27
PROVIDERS: ATTEND Family Medicine
DX: M25.551 Pain in right hip (principal); I10 Essential (primary) hypertension
CPT/HCPCS: 36415; 73502; 80053; 80061; 84443; 85027

== ENCOUNTER → 2021-12-26 | Outpatient (CLI) | payer MEDICARE, OTHER ==
--- NOTE | 2021-12-26 12:18 | Diagnostic Imaging Report ---
INDICATION: Postmenopausal screening COMPARISON: 12/22/2019 FINDINGS: AP Spine L1-L4: [BMD (g/cm2): 1.162] [T-Score: -0.3] [Z-Score: 1.2] [BMD Previous: 1.104] [BMD % Change: 5.3] LT Hip Neck: [BMD (g/cm2): 0.901] [T-Score: -1.0] [Z-Score: 0.6] LT Hip Total: [BMD (g/cm2):0.912] [T-Score:-0.8] [Z-Score: 0.6] [BMD Previous: 0.901] [BMD % Change: 1.2] RT Hip Neck: [BMD (g/cm2):0.865] [T-Score:-1.2] [Z-Score:0.4] RT Hip Total: [BMD (g/cm2):0.904] [T-score:-0.8] [Z-Score:0.6] [BMD Previous:0.889] [BMD % Change:1.7] *Indicates significant change from prior examination based on 95% confidence level. World Health Organization criteria for BMD interpretation classify patients as Normal (T-score at or above -1.0), Osteopenic (T-score between -1.0 and -2.5) or Osteoporotic (T-score at or below -2.5). LIMITATIONS AND MODIFICATION: None. FRACTURE RISK (FRAX SCORE): The ten year probability of (%): Major Osteoporotic Fracture: [15.4] Hip Fracture: [2.0] IMPRESSION: 1. Normal bone mineral density. 2. There has been a statistically significant increase in BMD since prior exam, detailed above. 3. See below National Osteoporosis Foundation guidelines on when to potentially initiate pharmacologic therapy. Based on the National Osteoporosis Foundation Guidelines, pharmacologic treatment should be initiated in any of the following, unless clinical conditions suggest otherwise: * Any patient with prior fragility fracture of the hip or vertebrae. A spine fracture indicates 5X risk for subsequent spine fracture and 2X risk for subsequent hip fracture. * Osteoporosis (T-score <-2.5). * Postmenopausal women and men age 50 and older with low bone mass/osteopenia (T-score between -1.0 and -2.5) by DXA and 10-year major osteoporotic fracture greater than 20% or a 10-year probability of hip fracture greater than 3%. These fracture risks are supplied above in the FRAX score, if applicable. * Clinician judgement and/or patient preferences may indicate treatment for people with 10-year fracture probabilities above or below these levels. Dictated by: Dictated on workstation # [id number]
--- NOTE | 2021-12-26 13:00 | Diagnostic Imaging Report ---
INDICATION: Routine screening. COMPARISON: 10/19/2020 and 12/22/2019. TECHNIQUE: 2D and 3D bilateral screening mammography was performed with CAD. FINDINGS: Both breasts are heterogeneously dense, limiting the sensitivity of mammography. Benign calcifications on the left are noted. The overall parenchymal pattern is stable. No spiculated mass or malignant-appearing microcalcifications are seen. A benign nodule in the superior left breast is stable. The axillae are unremarkable. IMPRESSION: No mammographic features suspicious for malignancy are identified. ACR BI-RADS Category 2: Benign findings. Result letter will be mailed to the patient. Note: At least 10% of breast cancer is not imaged by mammography. Dictated by: Dictated on workstation # [id number]
== END ==
LOC: RAD 10:19
PROVIDERS: ATTEND Family Medicine
DX: Z13.820 Encounter for screening for osteoporosis (principal); M81.0 Age-related osteoporosis without current pathological fracture; Z12.31 Encounter for screening mammogram for malignant neoplasm of breast; Z78.0 Asymptomatic menopausal state
CPT/HCPCS: 77063; 77067; 77080

== ENCOUNTER → 2022-08-16 | Outpatient (CLI) | payer MEDICARE, OTHER ==
[~2022-08-16] MED LIST changes: +METR45GE6 TP; -METR45GE9 TP
[2022-08-16 10:03] LABS: BASOPHILS # (AUTO) 0.1 10^3/uL (0.0-0.1); BASOPHILS % (AUTO) 1 % (0-10); EOSINOPHILS # (AUTO) 0.1 10^3/uL (0.0-0.3); EOSINOPHILS % (AUTO) 2 % (0-10); HEMATOCRIT 38 % (35-52); HEMOGLOBIN 12.5 g/dL (11.5-16.0); LYMPHOCYTES # (AUTO) 1.3 10^3/uL (1.0-4.0); LYMPHOCYTES % (AUTO) 20 % (12-44); MEAN CORPUSCULAR HEMOGLOBIN 30 pg (25-34); MEAN CORPUSCULAR HGB CONC 33 g/dL (32-36); MEAN CORPUSCULAR VOLUME 91 fL (80-99); MEAN PLATELET VOLUME 8.7 fL (9.0-12.2); MONOCYTES # (AUTO) 0.7 10^3/uL (0.0-1.0); MONOCYTES % (AUTO) 10 % (0-12); NEUTROPHILS # (AUTO) 4.2 10^3/uL (1.8-7.8); NEUTROPHILS % (AUTO) 66 % (42-75); PLATELET COUNT 337 10^3/uL (130-400); WHITE BLOOD COUNT 6.3 10^3/uL (4.3-11.0)
[2022-08-16 10:12] LABS: ALBUMIN 4.3 GM/DL (3.2-4.5); POTASSIUM 3.9 MMOL/L (3.6-5.0)
[2022-08-16 10:13] LABS: CALCIUM 9.7 MG/DL (8.5-10.1)
[2022-08-16 10:15] LABS: TOTAL PROTEIN 7.8 GM/DL (6.4-8.2)
[2022-08-16 10:16] LABS: BILIRUBIN,TOTAL 0.4 MG/DL (0.1-1.0)
[2022-08-16 10:18] LABS: CREATININE SERUM 1.07 MG/DL (0.60-1.30)
== END ==
LOC: LAB 09:49
PROVIDERS: ATTEND Family Medicine
DX: I10 Essential (primary) hypertension (principal); E78.5 Hyperlipidemia, unspecified; E03.9 Hypothyroidism, unspecified; M25.50 Pain in unspecified joint; M79.10 Myalgia, unspecified site
CPT/HCPCS: 36415; 80053; 80061; 82550; 84443; 85025; 86038; 86141; 86431

== ENCOUNTER 2022-09-30 15:49 | Emergency (ER) | payer MEDICARE, OTHER ==
[~2022-09-30] VITALS: Ht 162.6 cm; Wt 72.1 kg
--- NOTE | 2022-09-30 16:18 | ED Headache ---
General Chief Complaint: Head/Cervical Problems Stated Complaint: HEADACHE Source: patient Exam Limitations: no limitations History of Present Illness Date Seen by Provider: September 30, 2022 Time Seen by Provider: 16:14 Initial Comments Patient is a 72-year-old female with a history of hypertension who presents ED with occipital head pain, neck pain. Symptoms started acutely last night. Pain starts to the mid cervical spine radiates to the occipital head. Described as sharp and "feels hot". Rates pain currently 9 out of 10. Worst with movement. Took ibuprofen this morning without much improvement. She states she felt a little tipsy today but reports a steady gait. Denies worst headache of her life. Strong family history of brain aneurysms. Patient denies any traumas or falls. She denies of any facial droop, visual changes, slurred speech, unilateral muscle weakness or sensory changes. Denies history of similar symptoms in the past. Patient is concerned for this neck pain. She reports pain with movement and on palpation. Denies fever, chills, vomiting, visual loss, chest pain, cough or shortness of breath Allergies and Home Medications Allergies Coded Allergies: ciprofloxacin (Verified Allergy, Unknown, 04/19/21) gabapentin (Verified Allergy, Unknown, 09/30/22) morphine (Verified Allergy, Unknown, 04/19/21) Patient Home Medication List Home Medication List Reviewed: Yes Amlodipine Besylate (Amlodipine Besylate) 5 Mg Tablet, 5 MG PO DAILY, (Reported) Entered as Reported by: HEATHER GARCIA on 04/19/21 0855 Aspirin (Aspirin EC) 81 Mg Tablet.dr, 81 MG PO HS, (Reported) Entered as Reported by: HEATHER GARCIA on 04/19/21 0855 Atorvastatin Calcium (Atorvastatin Calcium) 20 Mg Tablet, 20 MG PO HS, (Reported) Entered as Reported by: HEATHER GARCIA on 04/19/21 0855 Calcium Carbonate/Vitamin D3 (Calcium + Vitamin D Tablet) 1 Each Tablet, 1 EACH PO BID, (Reported) Entered as Reported by: HEATHER GARCIA on 04/19/21 0855 Cholecalciferol (Vitamin D3) (Vitamin D3) 125 Mcg Tablet, 250 MCG PO DAILY, (Reported) Entered as Reported by: HEATHER GARCIA on 04/19/21 0855 Estrogens, Conjugated (Premarin) 0.625 Mg Tablet, 0.625 MG PO DAILY, (Reported) Entered as Reported by: HEATHER GARCIA on 04/19/21 08 Fluticasone Propionate (Flonase Allergy Relief) 9.9 Ml [place].susp, 2 SPRAY NS DAILY PRN for ALLERGIES, (Reported) Entered as Reported by: HEATHER GARCIA on 04/19/21854 Hydrocodone/Acetaminophen (Hydrocodone-Acetamin 5-325 mg) 5 Mg-325 Mg Tablet, 1 TAB PO Q4H PRN for PAIN-MODERATE (5-7) Prescribed by: FCO STONE on 09/30/221935 Ibuprofen (Ibuprofen) 200 Mg Tablet, 600 MG PO Q6H PRN for PAIN-MILD (1-4), (Reported) Entered as Reported by: HEATHER GARCIA on 04/19/21854 Levothyroxine Sodium (Levothyroxine Sodium) 75 Mcg Tablet, 75 MCG PO DAILY, (Reported) Entered as Reported by: HEATHER GARCIA on 04/19/21854 Loratadine/Pseudoephedrine (Claritin-D 12 Hour Tablet) 1 Each Tab.er.12h, 1 EACH PO Q12H PRN for ALLERGIES, (Reported) Entered as Reported by: HEATHER GARCIA on 04/19/21 08 Meloxicam (Meloxicam) 15 Mg Tablet, 15 MG PO DAILY PRN for ARTHRITIS, (Reported) Entered as Reported by: HEATHER GARCIA on 04/19/21854 Metronidazole (Metronidazole) 45 Gm Gel..gram., 1 APPLIC TP DAILY, (Reported) Entered as Reported by: HEATHER GARCIA on 04/19/21854 Montelukast Sodium (Montelukast Sodium) 10 Mg Tablet, 10 MG PO HS, (Reported) Entered as Reported by: HEATHER GARCIA on 04/19/21854 Multivitamin (Multivitamin) 1 Each Tablet, 1 EACH PO HS, (Reported) Entered as Reported by: HEATHER GARCIA on 04/19/21854 Om3/Dha/Epa/Fish/Kril/Lut/Zeax (Megared Adv Total Body Softgel) 1 Each Capsule, 1 EACH PO HS, (Reported) Entered as Reported by: HEATHER GARCIA on 04/19/21 08 Pantoprazole Sodium (Pantoprazole Sodium) 40 Mg Tablet.dr, 40 MG PO DAILY, (Reported) Entered as Reported by: HEATHER GARCIA on 04/19/21854 Vitamin B Complex & Vit C No.3 (B Complex with Vitamin C) 1 Each Capsule, 1 EACH PO DAILY, (Reported) Entered as Reported by: HEATHER GARCIA on 04/19/21854 Vitamin E Mixed (Vitamin E) 100 Unit Tablet, 100 UNIT PO DAILY, (Reported) Entered as Reported by: HEATHER GARCIA on 04/19/21854 Discontinued Medications Hydrocodone/Acetaminophen (Hydrocodone-Acetamin 5-325 mg) 5 Mg-325 Mg Tablet, 1 TAB PO Q4H PRN for PAIN-MODERATE (5-7) Prescribed by: FCO STONE on 09/30/221839 Review of Systems Review of Systems Constitutional: No chills, No diaphoresis Eyes: Denies Blurred Vision, Denies Drainage, Denies Decreased Acuity Ears, Nose, Mouth, Throat: denies ear pain Respiratory: No no symptoms reported, No cough Cardiovascular: No chest pain Gastrointestinal: No abdominal pain, No diarrhea, No nausea, No vomiting Genitourinary: No decreased output, No discharge Musculoskeletal: No back pain, No joint pain Skin: No change in color, No change in hair/nails Psychiatric/Neurological: Headache All Other Systems Reviewed Negative Unless Noted: Yes Past Zusnhgu-Lgqfnh-Gzopts Hx Immunizations Up To Date First/Initial COVID19 Vaccinat: 2020 Past Medical History Hysterectomy High Cholesterol, Hypertension Reproductive Disorders: No Gastroesophageal Reflux Physical Exam Vital Signs Vital Signs - First Documented 09/30/22 09/30/22 15:54 18:48 Temp 35.6 Pulse 79 Resp 16 B/P (MAP) 163/99 (120) Pulse Ox 97 O2 Delivery Room Air Capillary Refill : Height, Weight, BMI Height: '" Weight: lbs. oz. kg; 25.71 BMI Method: General Appearance: WD/WN, no apparent distress HEENT: PERRL/EOMI, normal ENT inspection, TMs normal, pharynx normal Cardiovascular: regular rate, rhythm, no edema, no gallop, no JVD Respiratory: chest non-tender, lungs clear, normal breath sounds, no respiratory distress, no accessory muscle use Gastrointestinal: normal bowel sounds, non tender, soft, no organomegaly Back: normal inspection, no CVA tenderness, no vertebral tenderness Extremities: normal range of motion, non-tender, normal inspection, no pedal edema Cra[place] Nerves: normal hearing, normal speech, PERRL Coordination/Gait: normal finger to nose, normal gait Motor/Sensory: no motor deficit, no sensory deficit Skin: normal color, warm/dry Progress/Results/Core Measures Results/Orders Lab Results Laboratory Tests Test 09/30/22 16:31 Range/Units White Blood Count 6.0 4.3-11.0 10^3/uL Red Blood Count 4.00 3.80-5.11 10^6/uL Hemoglobin 11.9 11.5-16.0 g/dL Hematocrit 36 35-52 % Mean Corpuscular Volume 90 80-99 fL Mean Corpuscular Hemoglobin 30 25-34 pg Mean Corpuscular Hemoglobin Concent 33 32-36 g/dL Red Cell Distribution Width 14.2 10.0-14.5 % Platelet Count 341 130-400 10^3/uL Mean Platelet Volume 8.9 L 9.0-12.2 fL Immature Granulocyte % (Auto) 0 % Neutrophils (%) (Auto) 61 42-75 % Lymphocytes (%) (Auto) 25 12-44 % Monocytes (%) (Auto) 11 0-12 % Eosinophils (%) (Auto) 1 0-10 % Basophils (%) (Auto) 1 0-10 % Neutrophils # (Auto) 3.7 1.8-7.8 10^3/uL Lymphocytes # (Auto) 1.5 1.0-4.0 10^3/uL Monocytes # (Auto) 0.7 0.0-1.0 10^3/uL Eosinophils # (Auto) 0.1 0.0-0.3 10^3/uL Basophils # (Auto) 0.0 0.0-0.1 10^3/uL Immature Granulocyte # (Auto) 0.0 0.0-0.1 10^3/uL Prothrombin Time 13.1 12.2-14.7 SEC INR Comment 1.0 0.8-1.4 Activated Partial Thromboplast Time 34 24-35 SEC Sodium Level 141 135-145 MMOL/L Potassium Level 3.6 3.6-5.0 MMOL/L Chloride Level 105 98-107 MMOL/L Carbon Dioxide Level 24 21-32 MMOL/L Anion Gap 12 5-14 MMOL/L Blood Urea Nitrogen 20 H 7-18 MG/DL Creatinine 1.04 0.60-1.30 MG/DL Estimat Glomerular Filtration Rate 57 BUN/Creatinine Ratio 19 Glucose Level 105 70-105 MG/DL Calcium Level 10.0 8.5-10.1 MG/DL Corrected Calcium 10.0 8.5-10.1 MG/DL Total Bilirubin 0.2 0.1-1.0 MG/DL Aspartate Amino Transf (AST/SGOT) 21 5-34 U/L Alanine Aminotransferase (ALT/SGPT) 20 0-55 U/L Alkaline Phosphatase 77 40-136 U/L Total Protein 7.2 6.4-8.2 GM/DL Albumin 4.0 3.2-4.5 GM/DL My Orders Orders - WILLIE ZAPATA Cbc With Automated Diff (09/30/22 16:12) Comprehensive Metabolic Panel (09/30/22 16:12) Partial Thromboplastin Time (09/30/22 16:12) Protime With Inr (09/30/22 16:12) Ct Angio Head/Neck (09/30/22 16:12) Iohexol Injection (Omnipaque 350 Mg/Ml 1 (09/30/22 16:45) Received Contrast (Hold Metformin- Contr (09/30/22 16:45) Ns (Ivpb) (Sodium Chloride 0.9% Ivpb Bag (09/30/22 16:45) Ed Iv/Invasive Line Start (09/30/22 16:33) Fentanyl Inj (Sublimaze Injection) (09/30/22 17:06) Ketorolac Injection (Toradol Injection) (09/30/22 18:00) Orphenadrine Inj (Ed Only) (Norflex Inje (09/30/22 18:00) Dexamethasone Injection (Decadron Injec (09/30/22 18:00) Rx-Hydrocodone/Apap 5-325 Mg (Rx-Vicodin (09/30/22 18:45) Hydrocodone/Apap 5/325 Tablet (Lortab 5 (09/30/22 18:45) Iv Push Roaster Helper Ed (09/30/22 ) Im/Sub-Q Injection Non-Ab Ed (09/30/22 ) Medications Given in ED Vital Signs/I&O 09/30/22 09/30/22 15:54 18:48 Temp 35.6 37.0 Pulse 79 76 Resp 16 16 B/P (MAP) 163/99 (120) 141/78 Pulse Ox 97 O2 Delivery Room Air Room Air Departure Communication (PCP) Reviewed previous ER visits, H&P, lab testing. Differential diagnosis of degenerative disc disease cervical spine, trigger point, cervical paraspinal muscle strain, stroke, headache. Denies worst headache of her life. Pain originates from the neck to the head. patient with right-sided cervical neck pain with radiation to occipital head. This started last night. Denies of any specific injury. She states she feels slightly unsteady but she does have a stable gait here in the ED. Denies dizziness or the feeling of the room spinning. No history of migraines. No visual changes, unilateral muscle weakness or sensory changes, facial droop, slurred speech, chest pain or shortness of breath. Pain appears to be worse with movement of the cervical neck. Patient is concern for a aneurysm. She states her brother of an aneurysm. On exam she has right-sided cervical paraspinal muscle tenderness. Negative Spurling sign. No distal numbness and tingling to her right upper extremity or left upper extremity. No chest pain or shortness of breath. This appears to be more secondary to trigger point versus cervical degenerative disc disease, cervical paraspinal muscle strain/sprain. Due to location of pain, family history, feeling unsteady CT angio of the head and neck was ordered. CT angio head and neck shows No evidence of significant stenosis or occlusion in the great vessels of the neck. 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 No previous intervention. Due to no focal neural deficits unlikely related from a stroke. There is no intracranial hemorrhage or abnormal mass effect. No abnormal focus of contrast enhancement is identified. Patient received a migraine cocktail without much improvement. She received dose of fentanyl with improvement. She did have some continued pain with movement. Once again this appears to be more secondary to the cervical DDD versus trigger point versus cervical paraspinal muscle. We will provide a few days worth of pain medication. I recommend outpatient follow-up with her primary care physician for further evaluation. She has a scheduled appointment on Saturday. Further evaluation is needed. Would likely benefit furthur imaging of her cervical spine. Patient agrees with plan of action. Return back to ED if symptoms worsen such as worsening head pain, unilateral muscle weakness or sensory changes Impression Primary Impression: Neck pain Disposition: 01 HOME, SELF-CARE Condition: Stable Departure-Patient Inst. Decision time for Depature: 18:39 Referrals: CHRISTINA TOMLINSON DO (PCP/Family) Primary Care Physician Patient Instructions: Neck Sprain (DC) Add. Discharge Instructions: Recommend follow-up your primary care physician next 2 days for reevaluation. If worsening pain, unilateral weakness or sensory changes facial droop visual loss to return back to ED. Take pain medication as prescribed. All discharge instructions reviewed with patient and/or family. Voiced understanding. Scripts Hydrocodone/Acetaminophen (Hydrocodone-Acetamin 5-325 mg) 5 Mg-325 Mg Tablet 1 TAB PO Q4H PRN for PAIN-MODERATE (5-7), #8 TAB Prov: WILLIE ZAPATA 09/30/22 WILLIE ZAPATA September 30, 2022 16:18
[2022-09-30 16:38] LABS: BASOPHILS % (AUTO) 1 % (0-10); EOSINOPHILS # (AUTO) 0.1 10^3/uL (0.0-0.3); EOSINOPHILS % (AUTO) 1 % (0-10); HEMATOCRIT 36 % (35-52); HEMOGLOBIN 11.9 g/dL (11.5-16.0); LYMPHOCYTES # (AUTO) 1.5 10^3/uL (1.0-4.0); LYMPHOCYTES % (AUTO) 25 % (12-44); MEAN CORPUSCULAR HEMOGLOBIN 30 pg (25-34); MEAN CORPUSCULAR HGB CONC 33 g/dL (32-36); MEAN CORPUSCULAR VOLUME 90 fL (80-99); MEAN PLATELET VOLUME 8.9 fL (9.0-12.2); MONOCYTES # (AUTO) 0.7 10^3/uL (0.0-1.0); MONOCYTES % (AUTO) 11 % (0-12); NEUTROPHILS # (AUTO) 3.7 10^3/uL (1.8-7.8); NEUTROPHILS % (AUTO) 61 % (42-75); PLATELET COUNT 341 10^3/uL (130-400)
[2022-09-30] MEDS ORDERED: NS 100 ML (IVPB) BAG IV ONE (16:45)
[2022-09-30] MEDS ORDERED: IOHEXOL 350 MG/ML 100 ML (OMNIPAQUE 350) VIAL IV ONE (16:45)
[2022-09-30] MEDS ORDERED: HOLD METFORMIN - RECEIVED CONTRAST 20 ML VIAL IV SCH (16:45)
[2022-09-30 16:48] LABS: POTASSIUM 3.6 MMOL/L (3.6-5.0)
[2022-09-30 16:50] LABS: PROTHROMBIN TIME PATIENT 13.1 SEC (12.2-14.7)
[2022-09-30 16:51] LABS: TOTAL PROTEIN 7.2 GM/DL (6.4-8.2)
[2022-09-30 16:52] LABS: BILIRUBIN,TOTAL 0.2 MG/DL (0.1-1.0)
[2022-09-30 16:54] LABS: CREATININE SERUM 1.04 MG/DL (0.60-1.30)
[2022-09-30] MEDS ORDERED: fentaNYL INJ 100 MCG/2 ML AMP IVP STA (17:06)
--- NOTE | 2022-09-30 17:41 | Diagnostic Imaging Report ---
PROCEDURE: CT angiography of the head and CT angiography of the neck with and without contrast. TECHNIQUE: Contiguous noncontrast images were obtained from the skull base through the vertex. After intravenous contrast administration, helical CT angiography of the neck was performed. Source data was reformatted into 3D MIP projections. Delayed post contrast acquisition was also obtained. Auto Exposure Controls were utilized during the CT exam to meet ALARA standards for radiation dose reduction. INDICATION: Headache, dizziness and unsteady gait. EXAMINATION: Multiple contiguous axial CT images of the head were obtained prior to and after intravenous administration of contrast. CT HEAD: Ventricles and sulci are within normal limits. There is no intracranial hemorrhage or abnormal mass effect. No abnormal focus of contrast enhancement is identified. There is mild low-density in the subcortical white matter of the posterior right frontal region. IMPRESSION: Unremarkable CT of the head without and with intravenous contrast. Low density in the right frontal white matter may be related to chronic microvascular ischemia. CTA HEAD: Anterior, middle and posterior cerebral arteries are unremarkable. There is no filling defect. Minimal atherosclerotic calcification is noted. There is no evidence of large vessel occlusion. No aneurysm or vascular malformation is seen. IMPRESSION: No CTA evidence of great vessel abnormality in the head. CTA NECK: Common and internal carotid arteries are patent. No stenosis or occlusion is seen. There is no evidence of intimal abnormality. 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 Correlation with previous intervention in these regions would be useful. Vertebral arteries are patent, bilaterally, and demonstrate tortuosity. No occlusion or dissection is seen. IMPRESSION: No evidence of significant stenosis or occlusion in the great vessels of the neck. 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 Dictated by: Dictated on workstation # [id number]
[2022-09-30] MEDS ORDERED: KETOROLAC 30 MG/ML VIAL IVP ONE (18:00)
[2022-09-30] MEDS ORDERED: ORPHENADRINE 60 MG/2 ML (NORFLEX) AMP (ED ONLY) IM ONE (18:00)
[2022-09-30] MEDS ORDERED: ACHD5005 PO ×2 (18:40→19:36)
[2022-09-30] MEDS ORDERED: HYDROcodone/APAP 5 MG/325 MG (LORTAB) TAB PO ONE (18:45)
[2022-09-30 18:48] VITALS: BP 141/78
== END 2022-09-30 18:50 | disposition home or self-care (01) ==
LOC: EDUNIT# 15:49 → ER 15:51
DX: M54.2 Cervicalgia (principal); I72.0 Aneurysm of carotid artery; Z28.311 Partially vaccinated for COVID-19; Z88.5 Allergy status to narcotic agent
CPT/HCPCS: 36415; 70496; 70498; 80053; 85025; 85610; 85730

== ENCOUNTER → 2022-11-28 | Outpatient (CLI) | payer MEDICARE, OTHER ==
[~2022-11-28] MED LIST changes: +ACHD5005 PO
--- NOTE | 2022-11-28 11:43 | Diagnostic Imaging Report ---
EXAMINATION: Pelvis 1 or 2 views HISTORY: Pelvic pain COMPARISON: None available. FINDINGS: There is mild right hip osteoarthritis. No fracture is seen. No dislocation. IMPRESSION: 1. Mild right hip osteoarthritis. Dictated by: Dictated on workstation # [id number]
== END ==
LOC: RAD 10:29
PROVIDERS: ATTEND Family Medicine
DX: M16.11 Unilateral primary osteoarthritis, right hip (principal); R10.2 Pelvic and perineal pain
CPT/HCPCS: 72170

== ENCOUNTER → 2022-11-30 | Outpatient (CLI) | payer MEDICARE, OTHER ==
--- NOTE | 2022-11-30 14:24 | Diagnostic Imaging Report ---
PROCEDURE: MRI right lower extremity without contrast. TECHNIQUE: Multiplanar, multisequence non contrast-enhanced MRI of the right lower extremity was accomplished. INDICATION: This patient has right hip and groin pain going down to the mid to lower thigh anteriorly. This is exacerbated by rising from a seated position and after continued walking it actually starts to feel a little bit better. Radiographs performed previously have been unremarkable. Multiplanar multisequence noncontrasted MRI of the right thigh and hip performed. There are moderate arthritic changes to the right hip, unremarkable for age. There were no findings of septic or aseptic necrosis. No articular collapse or fragmentation. The right superior and inferior pubic rami unremarkable. No findings of pelvic stress injury or other fracture pattern. The gluteal musculature and tendinous attachments appeared normal. There is no trochanteric bursal fluid. The iliopsoas muscle and tendons appeared normal. No bursal collection. There is no mass or fluid collection at the level of the sciatic notch. The visible lower pelvic sidewall normal. There is no groin adenopathy, mass, aneurysm, fluid collection or hernia. The anterior and posterior compartments of the thigh appeared normal. No muscular marrow edema, atrophy or findings of denervation. The femoral marrow signal intensity was normal throughout. There are mild arthritic changes of the partially visualized knee joint with no acute abnormality at that level found. There is no mass or fluid collection. There is no hemorrhage. IMPRESSION: Arthritic changes to the right hip but no acute or suspicious finding at right hip and thigh MRI. These results were discussed with the ordering physician at time of dictation. Dictated by: Dictated on workstation # [id number]
== END ==
LOC: RAD 11:49
PROVIDERS: ATTEND Family Medicine
DX: M16.11 Unilateral primary osteoarthritis, right hip (principal); M79.651 Pain in right thigh

== ENCOUNTER → 2022-12-28 | Outpatient (CLI) | payer MEDICARE, OTHER ==
--- NOTE | 2022-12-28 12:21 | Diagnostic Imaging Report ---
INDICATION: Routine screening. Comparison is made with prior mammogram from 12/26/2021 and 10/19/2020. 2-D and 3-D bilateral screening mammography was performed with CAD. Both breasts are heterogeneously dense, limiting the sensitivity of mammography. There is an area of architectural distortion in the right breast best seen on CC view at the nipple line. This appears similar to prior exam. Patient reported has had prior right breast biopsy. Left breast is stable. There is a benign calcification in the left breast. No malignant-appearing microcalcifications are seen. Axillae are unremarkable. IMPRESSION: No mammographic features suspicious for malignancy are identified. ACR BI-RADS Category 2: Benign findings. Result letter will be mailed to the patient. Note: At least 10% of breast cancer is not imaged by mammography. BI-RADS Category 2 Dictated by: Dictated on workstation # [id number]
== END ==
LOC: RAD 08:34
PROVIDERS: ATTEND Family Medicine
DX: Z12.31 Encounter for screening mammogram for malignant neoplasm of breast (principal)
CPT/HCPCS: 77063; 77067

== ENCOUNTER → 2023-03-22 | Outpatient (CLI) | payer MEDICARE, OTHER ==
[2023-03-22 08:43] LABS: BILIRUBIN,TOTAL 0.3 MG/DL (0.1-1.0); CALCIUM 9.7 MG/DL (8.5-10.1); CREATININE SERUM 1.04 MG/DL (0.60-1.30); POTASSIUM 4.2 MMOL/L (3.6-5.0); TOTAL PROTEIN 7.3 GM/DL (6.4-8.2)
== END ==
LOC: LAB 08:09
PROVIDERS: ATTEND Physician Assistant
DX: E78.2 Mixed hyperlipidemia (principal)
CPT/HCPCS: 36415; 80053; 80061